=== PATIENT | male | born 1945 | race Caucasian/White ===

== ENCOUNTER 2020-12-23 08:33 | Day surgery (SDC) | payer MEDICARE ==
[2020-12-19 10:12] VITALS: BMI 44.3
[~2020-12-23 08:33] MED LIST: SODIUM CHLORIDE 0.9% 1,000 ML IV SCH; ceFAZolin 1 GM in SODIUM CHLORIDE 0.9% 250 ML IRRIGATION PRN
[2020-12-23 09:06] LABS: Glucose,Whole Blood 177 mg/dL (75-99)
[2020-12-23 09:18] VITALS: RESP 18; TEMP 98.3
[2020-12-23 09:50] LABS: Calcium 8.5 mg/dL (8.4-10.2); Potassium 3.7 mmol/L (3.5-5.1)
[2020-12-23] MEDS ORDERED: PROPOFOL 10 MG/ML 20 ML VIAL IV ONE (09:56)
[2020-12-23] MEDS ORDERED: fentaNYL (PF) 50 MCG/ML 2 ML AMP ONE (09:56)
[2020-12-23] MEDS ORDERED: MIDAZOLAM 2 MG/2 ML VIAL ONE (09:56)
[2020-12-23] MEDS ORDERED: LIDOCAINE 1% INJ 10MG/ML (20 ML MDV) ONE (10:18)
[2020-12-23] MEDS ORDERED: LIDOCAINE 1% INJ 10MG/ML (20 ML MDV) SQ ONE (10:31)
[2020-12-23] MEDS ORDERED: ACETAMINOPHEN TAB 325 MG TAB PO PRN (11:43)
[2020-12-23] MEDS ORDERED: ACETAMINOPHEN IV (For NPO) 1,000 MG in EMPTY BAG 1 BAG IVPB ONE (11:43)
[2020-12-23] MEDS ORDERED: VANCOMYCIN 2,250 MG in SODIUM CHLORIDE 0.9% 500 ML 500 ML IVPB ONE (12:00)
--- NOTE | 2020-12-23 12:19 | CE ---
CARDIAC ELECTROPHYSIOLOGY REPORT A Bi-V ICD generator change. 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 Subsequently underwent a generator change in [address] Grey. He comes back for a Bi-V ICD generator change. Patient was brought to the EP lab in a fasting state. Written informed consent was obtained prior to the procedure. IV Kefzol was administered perioperatively. The left pectoral area was prepped and draped as per protocol and 1% lidocaine was used for local anesthesia. An incision was made directly over the previous surgical site and carried down to the level of the pectoralis muscle, carried down to the level of the pectoralis muscle and the generator. The generator was explanted. The leads were quite coiled and twisted inside and had to be carefully freed from the surrounding scar tissue and capsule. This was done successfully and thereafter the leads were interrogated. Partial capsulectomy was performed and a new generator was implanted. The atrial lead was a [employer] OptiSense 1699 TC, 52 cm in length and serial #[id number]. The patient was in atrial fibrillation. 0.8 mV. Pacing impedance 350 ohms. The ICD lead was pulled back on fluoroscopy. The lead was pulled back on fluoroscopy. Minimal heel was noted on fluoroscopy. This was a [employer] Durata 7120, 60 cm in length and serial #[id number]. Pacing threshold 1.75 V at 0.5 milliseconds. R- waves greater than 12 mV and pacing impedance 410 ohms. The LV lead was implanted in the posterolateral vein chronically. [employer] QuickFlex model #1156 T, 75 cm in length and serial #[id number]. The LV threshold was 1.4 V at 0.5 milliseconds. Pacing impedance of 730 ohms. High-voltage impedance 48 ohms from RV to SVC and . The new generator that was implanted was a [employer] model #[id number], serial #[id number]. The leads and generator were then placed in subfascial pocket. The wound was closed in 3 layers and dressed per protocol. The device was then programmed to VVTR with a base rate of 70 ppm, the LV to RV offset was reprogrammed to 55 milliseconds. Three zones of tachy therapies were programmed. VT1 zone at 176 beats per minute, VT 2 zone at 214 beats per minute and VF at 214 beats per minute. Appropriate antitachycardia pacing and cardioversion defibrillation was programmed first cardioversion at 25 joules and first defibrillation at 36 joules. Sensitivity at 0.5 mV. The patient tolerated the procedure well without any acute complications. 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 PLAN: Since the patient also has had a history of leg ulcers and back ulcers with delayed healing, IV vancomycin will also be administered. MMODL / IJN: [id number] /
[2020-12-23 15:12] VITALS: BP 140/74; PULSE 70
== END 2020-12-23 15:47 | disposition home or self-care (01) ==
LOC: CATHEP 08:33
PROVIDERS: ATTEND Internal Medicine Clinical Cardiac Electrophysiology
DX: Z45.02 Encounter for adjustment and management of automatic implantable cardiac defibrillator (principal); I42.0 Dilated cardiomyopathy; I25.5 Ischemic cardiomyopathy; I11.0 Hypertensive heart disease with heart failure; I50.22 Chronic systolic (congestive) heart failure; I48.21 Permanent atrial fibrillation; Z20.822 Contact with and (suspected) exposure to COVID-19; Z87.891 Personal history of nicotine dependence; E11.51 Type 2 diabetes mellitus with diabetic peripheral angiopathy without gangrene; I47.2 Ventricular tachycardia; G47.33 Obstructive sleep apnea (adult) (pediatric); E07.9 Disorder of thyroid, unspecified; M19.90 Unspecified osteoarthritis, unspecified site; Z90.49 Acquired absence of other specified parts of digestive tract; Z79.01 Long term (current) use of anticoagulants; Z79.82 Long term (current) use of aspirin; Z79.890 Hormone replacement therapy; Z79.4 Long term (current) use of insulin; Z79.899 Other long term (current) drug therapy
CPT/HCPCS: 33264; 80048; 87635; C1882; J2250; J3370; J0690; J2001; J3010; J2704